=== PATIENT | male | born 1960 | race Caucasian/White ===

== ENCOUNTER 2020-11-18 15:49 | Outpatient (CLI) | payer OTHER | END 2020-11-18 15:50 | disposition home or self-care (01) | LOC: CSHULT 15:49 | PROVIDERS: ATTEND Urology | DX: N18.9 Chronic kidney disease, unspecified (principal); N20.0 Calculus of kidney; R80.9 Proteinuria, unspecified; N28.1 Cyst of kidney, acquired | CPT/HCPCS: 74018; 76770 ==

== ENCOUNTER 2022-06-26 10:45 | Outpatient (CLI) | payer OTHER | END 2022-06-26 10:46 | disposition home or self-care (01) | LOC: CSHCP 10:45 | PROVIDERS: ATTEND Internal Medicine | DX: Z01.818 Encounter for other preprocedural examination (principal); J98.4 Other disorders of lung | CPT/HCPCS: 94010; 94726; 94729; 94760 ==

== ENCOUNTER 2022-09-20 12:59 | Outpatient (CLI) | payer OTHER | END 2022-09-20 13:00 | disposition home or self-care (01) | LOC: CSHMRI 12:59 | PROVIDERS: ATTEND Urology | DX: R97.20 Elevated prostate specific antigen [PSA] (principal); N40.2 Nodular prostate without lower urinary tract symptoms; R93.89 Abnormal findings on diagnostic imaging of other specified body structures | CPT/HCPCS: 72197 ==